=== PATIENT | male | born 1965 | race Caucasian/White ===

== ENCOUNTER 2020-01-19 06:58 | Observation (INO) ==
--- NOTE | 2020-01-02 09:05 | PAT Medication Instructions ---
Medication Instructions Date of Service January 02, 2020 Home Medications Medication Instructions Recorded Ace Nunn #1 ea 01/02/20 amlodipine 5 mg PO QAM atenolol 50 mg PO QAM benazepril 40 mg PO QAM hydrochlorothiazide 12.5 mg PO QAM meloxicam 15 mg PO QAM omega 6-pzv-fhw-fish oil [Fish Oil] 2 cap PO QAM ASK your surgeon for instructions meloxicam 15 mg PO QAM STOP taking 2 weeks before surgery If surgery is within 2 weeks, stop taking as soon as possible. omega 3-xqe-bqd-fish oil [Fish Oil] 2 cap PO QAM DO NOT take the morning of surgery benazepril 40 mg PO QAM hydrochlorothiazide 12.5 mg PO QAM Take morning of surgery With a small sip of water, OTHERWISE NOTHING TO EAT OR DRINK AFTER MIDNIGHT: amlodipine 5 mg PO QAM atenolol 50 mg PO QAM Other Notes If you have any questions please call us at [phone] or [phone] or [phone] or [phone]
--- NOTE | 2020-01-02 09:34 | Anesthesiology Consultation ---
Date of Service January 02, 2020 Assessment & Plan (1) Encounter for pre-operative examination: COVID Status: As of 01/01 assessment, patient denies travel to endemic area, known exposure/sick contacts, or symptoms of COVID19. Patient instructed to follow strict social distancing guidelines, wear a mask in public and avoid travel for 14 days prior to surgery. 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 Lately has been to [place], [place], [place], [place]. He does not know his schedule, but there is a chance he could drive through the [facility] currently on the list of "hot spots" ([place], [place], [place], etc). He was instructed to strictly follow safety guidelines when in those states. Preoperative COVID19 testing to be completed on 01/14. Patient made aware to self-isolate as much as possible between COVID testing and surgery. He states he will not be working between testing and surgery. Paratracheal abnormality seen on pre-op CXR. Note sent to PCP, awaiting respons e. Chart Review Chart Review: Acceptable Risk for Surgery (pending PCP response re: CXR) and Patient seen in Pre Admission Testing Teaching & Discussion Instructed NPO after midnight before surgery, except medications with 15 cc of water. Medication instructions provided according to the PAT guidelines. History Surgery Operation Date: 01/19/20 12:30 Proposed Procedures p Right Anterior Total Hip Arthroplasty - Hima Wen DO Height/Weight Height: 6 ft 1 in Weight: 134.1 kg Allergies Allergy/AdvReac Type Severity Reaction Status Date / Time No Known Allergies Allergy Verified 12/28/19 12:49 Medications Home Medications Medication Instructions Recorded Confirmed Last Taken amlodipine 5 mg PO QAM 12/28/19 01/02/20 Unknown atenolol 50 mg PO QAM 12/28/19 01/02/20 Unknown benazepril 40 mg PO QAM 12/28/19 01/02/20 Unknown hydrochlorothiazide 12.5 mg PO QAM 12/28/19 01/02/20 Unknown meloxicam 15 mg PO QAM 12/28/19 01/02/20 Unknown omega 7-fvb-adx-fish oil [Fish Oil] 2 cap PO QAM 12/28/19 01/02/20 Unknown Wheeled Walker #1 ea 01/02/20 01/02/20 Unknown Past Medical History Medical History Hypertension Obesity Osteoarthritis Sleep apnea cpap Exercise / Class Metabolic Activity II 4-5 Yardwork/Stairs/Walk up hill (Limited by knee pain/hip pain but denies SOB/CP with 1 FOS, moving slowly) Past Family History Family History Other No family history of adverse response to anesthesia Past Surgical History Surgical History No history of previous surgery Past Anesthesia History No Family Hx of Anesthesia Complications Patient has never had anesthesia. History of PONV No Hx of Motion Sickness Social History Smoking Status: Never smoker Do You Dip or Chew Tobacco: No Hx Alcohol Use: No Hx Substance Use: No substance use type: does not use Review of Systems Pt denies any recent chest pain, shortness of breath, palpitations, cough, fever or URI. Physical Exam Vital Signs BP: 130/76 P: 69bpm SPO2: 97% RA T: 98.6 F R: 12 ENMT Mouth: no dental restorations, no chipped teeth and no loose teeth Thyromental Distance: > or= 3.5 Finger Breadths (3.5) Mallampati Class: II Neck normal visual inspection; neck extension not limited Respiratory normal respiratory effort Auscultation: lungs clear to auscultation bilaterally Cardiovascular Rate/Rhythm: regular rate and regular rhythm Heart Sounds: no murmur Vessels: no carotid bruit Testing Laboratory Results 01/02/20 09:44 01/02/20 09:44 PT 11.1 Seconds (9.0-12.0) 01/02/20 09:44 INR 1.1 (0.9-1.1) 01/02/20 09:44 APTT 27.1 Seconds (21.0-31.0) 01/02/20 09:44 Blood Type A Positive 01/02/20 09:44 Antibody Screen NEGATIVE 01/02/20 09:44 Electrocardiogram Date: 01/02/20 Findings: + NSR @ (67bpm) Chest X-Ray Date: 01/02/20 FINDINGS: Cardiac silhouette is normal. Ill-defined opacity of the right paratracheal tissues. Mild descending thoracic aortic tortuosity. Small hiatal hernia. No pneumothorax, pleural effusion, overt pulmonary edema or airspace consolidation to suggest pneumonia. Bones appear grossly intact. IMPRESSION: 1. Ill-defined right paratracheal opacity may be projectional. Correlate with prior imaging. 2. Small hiatal hernia.
--- NOTE | 2020-01-02 10:08 | XRay Report ---
XR chest Pre-admission PA/Lat HISTORY: 54 years-old Male pat preoperative exam. No acute chest complaints. COMPARISON: 9 TECHNIQUE: PA and lateral views of the chest FINDINGS: Cardiac silhouette is normal. Ill-defined opacity of the right paratracheal tissues. Mild descending thoracic aortic tortuosity. Small hiatal hernia. No pneumothorax, pleural effusion, overt pulmonary e katie or airspace consolidation to suggest pneumonia. Bones appear grossly intact. IMPRESSION: 1. Ill-defined right paratracheal opacity may be projectional. Correlate with prior imaging. 2. Small hiatal hernia. ACT 112: Negative or not required by law. The above report was generated using voice recognition software. It may contain grammatical, syntax o r spelling errors. Electronically signed by: Gary Pappas M.D. 01/02/2020 10:06 AM
[2020-01-02 11:08] LABS: Basophils # (auto) 0.03 K/uL (0-0.2); Basophils % (auto) 0.6 %; Hematocrit (blood only) 41.4 % (42-52); Hemoglobin 14.1 g/dL (14.0-18.0); Immature Granulocytes # (auto) 0.02 K/uL (0.00-0.02); Immature Granulocytes % (auto) 0.4 %; Lymphocytes # (auto) 1.26 K/uL (1.2-3.4); Lymphocytes % (auto) 25.1 %; Mean Corpuscular Hemoglobin 31.3 pg (25-34); Mean Corpuscular Hgb Conc 34.1 g/dL (32-36); Mean Corpuscular Volume 91.8 fL (80-100); Mean Platelet Volume 9.8 fL (7.4-10.4); Monocytes # (auto) 0.49 K/uL (0.11-0.59); Monocytes % (auto) 9.8 %; Neutrophils # (auto) 3.12 K/uL (1.4-6.5); Neutrophils % (auto) 62.1 %; Platelet Count 239 K/uL (130-400); RDW Coefficient of Variation 12.5 % (11.5-14.5); Red Blood Count 4.51 M/uL (4.7-6.1); White Blood Count 5.02 K/uL (4.8-10.8)
[2020-01-02 11:14] LABS: INR 1.1 (0.9-1.1); Partial Thromboplastin Time 27.1 Seconds (21.0-31.0); Prothrombin Time 11.1 Seconds (9.0-12.0)
[2020-01-02 11:18] LABS: BUN Creatinine Ratio 16.9 (10-20); Calcium 9.3 mg/dl (8.5-10.1); Creatinine Clr Calc Pharmacy 94.8 ml/min; Est GFR (African American) 74.1; Potassium 4.4 mmol/L (3.5-5.1)
--- NOTE | 2020-01-03 06:41 | Electrocardiogram Report ---
Test Reason : Blood Pressure : / mmHG Vent. Rate : 067 BPM Atrial Rate : 067 BPM P-R Int : 184 ms QRS Dur : 104 ms QT Int : 406 ms P-R-T Axes : 060 066 061 degrees QTc Int : 429 ms Normal sinus rhythm Normal ECG No previous ECGs available Confirmed by Herb Newsome ([id number]) on 01/03/2020 6:41:25 AM Referred By: Hima Wen Confirmed By:Herb Newsome
--- NOTE | 2020-01-18 08:15 | History & Physical Report ---
Date of Service January 18, 2020 Assessment & Plan (1) Osteoarthritis of right hip: We will proceed with a right anterior total hip arthroplasty. Postoperatively he will be placed on aspirin for DVT prophylaxis and kept overnight in the hospital for postoperative medical management. He plans to use energy physical therapy upon discharge. Lazaro is a low risk for joint placement surgery without any major comorbidities. Present on Admission?: Yes History of Present Illness Chief Complaint: Primary osteoarthritis of the right hip Primary Care Provider: Donna Vee MD Lazaro is a pleasant 54-year-old male who presented my office with complaints of chronic increasing right hip and groin pain. X-rays and clinical examination have been diagnostic for advanced osteoarthritis of the right hip. After failing extensive conservative treatment, he has elected proceed with a right total hip arthroplasty. Allergies Allergy/AdvReac Type Severity Reaction Status Date / Time No Known Allergies Allergy Verified 12/28/19 12:49 Home Medications Home Medications Medication Instructions Recorded Confirmed Type amlodipine 5 mg PO QAM 12/28/19 01/02/20 History atenolol 50 mg PO QAM 12/28/19 01/02/20 History benazepril 40 mg PO QAM 12/28/19 01/02/20 History hydrochlorothiazide 12.5 mg PO QAM 12/28/19 01/02/20 History meloxicam 15 mg PO QAM 12/28/19 01/02/20 History omega 1-stz-zok-fish oil [Fish Oil] 2 cap PO QAM 12/28/19 01/02/20 History Wheeled Walker #1 ea 01/02/20 01/02/20 Rx Past Med/Surg History Medical History Hypertension Obesity Osteoarthritis Sleep apnea cpap Surgical History No history of previous surgery Family History Other No family history of adverse response to anesthesia Social History Smoking Status: Never smoker Second Hand Exposure: No; Hx Alcohol Use: No Hx Substance Use: No Preferred Language: Icelandic Communication Ability: Effective 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 Beliefs That Will Affect Care: None Current Living Situation: Spouse Current Living Situation Comment: adult son every other weekend Feels Safe at Home: Yes Review of Systems Review of Systems: All systems reviewed & are unremarkable except as noted in HPI & below Physical Exam Constitutional: WD/WN, vitals as above Eyes: PERRL, conjunctivae normal, anicteric sclerae ENMT: external ear and nose normal, oropharynx normal Neck: trachea midline, no thyromegaly Respiratory: normal respiratory effort Cardiovascular: RRR, no murmur, no edema Gastrointestinal (Abdomen): normal bowel sounds, soft, nontender, no hepatosplenomegaly Musculoskeletal: Physical examination of the right hip reveals decreased range of motion with flexion, internal and external rotation. There is significant groin pain with forced internal rotation of the hip his leg lengths are essentially equal. Psychiatric: A+Ox3, euthymic affect Results & Data Results & Data ([facility]) Diagnostic Findings Radiographs of the right hip and pelvis demonstrate advanced osteoarthritis with joint space narrowing osteophyte formation and bwwh-lh-fuzn articulation. PG Care Time/CCT Total # of Minutes Spent Total Time Spent with Patient: Total time spent is greater than 50% in coordination of care (as documented) at patient's floor/unit and/or counseling patient: Coding Level of Care Code 70647 Initial Inpt Care Lvl 3 Diagnoses Osteoarthritis of right hip M16.11
--- NOTE | 2020-01-19 06:53 | History & Physical Bridge Note ---
Date of Service January 19, 2020 History & Physical Bridge Note I have examined the patient, reviewed the History & Physical and in the interval since the performance of the History & Physical I have noted the following changes of clinical significance: no changes noted
[~2020-01-19 06:58] MED LIST: ACETAMINOPHEN 500 MG TAB PO SCH; BUPIVACAINE 0.5 % 5 MG/1 ML PF 10ML VIAL ONE; CEFAZOLIN 3000MG 72.5 ML IV SCH; DEXAMETHASONE SOD INJ 4 MG/ML VIAL ONE; FAMOTIDINE 20 MG TAB PO SCH; GABAPENTIN 600 MG DOSE PO SCH; GLYCOPYRROLATE 0.2 MG/ML VIAL ONE; KETAMINE HCL INJ 50 MG/ML 10 ML VIAL ONE; LIDOCAINE HCL 2% 2 ML VIAL/AMP(20MG/ML) INFIL ONE; LR 500ML BOLUS, THEN 15ML/HR IV SCH; LR 60ML/HR IV SCH; MIDAZOLAM HCL 1 MG/ML 2ML VIAL ONE; ONDANSETRON INJ 2 MG/ML 2 ML VIAL ONE; PROPOFOL IV EMULSION 10 MG/ML 20 ML VIAL IV ONE; ROPIVACAINE 0.5% HCL/PF 150 MG, BUPIVACAINE 0.5% MPF 30 ML, EPINEPHrine 30MG/30ML (OR U... INSTIL SCH; TRANEXAMIC ACID 1,000 MG **IV Intra-op IV SCH; TRANEXAMIC ACID 1,000 MG **IV Pre-op IV SCH; dexAMETHasone 4 MG TAB PO SCH
[2020-01-19] MEDS ORDERED: ORTHO JOINT ANESTHETIC ONE (07:47)
[2020-01-19] MEDS ORDERED: fentaNYL citrate 100 MCG/2 ML VIAL IV PRN (08:11)
[2020-01-19] MEDS ORDERED: ATROPINE SULFATE 0.1 MG/ML 10ML SYR IV PRN (08:11)
[2020-01-19] MEDS ORDERED: ONDANSETRON INJ 2 MG/ML 2 ML VIAL IV PRN ×2 (08:11→12:03)
[2020-01-19] MEDS ORDERED: HYDROmorphone INJ 2 MG/ML SYR/VIAL IV PRN (08:11)
[2020-01-19] MEDS ORDERED: ePHEDrine sulfate 50 MG/ML AMP IV PRN (08:11)
[2020-01-19] MEDS ORDERED: PROPOFOL IV EMULSION 10 MG/ML 20 ML VIAL IV ONE ×2 (09:52)
--- NOTE | 2020-01-19 10:08 | Operative Report ---
PG Post Operative Report Pre & Post Diagnosis Operation Date: 01/19/20 08:40 Pre-Op Diagnosis: Right Hip Degenerative Joint Disease Post-Op Diagnosis: Right Hip Degenerative Joint Disease I identified the patient and participated in the time-out.: Yes Procedure Operation Date: 01/19/20 08:40 Actual Procedures p Right Anterior Total Hip Arthroplasty, Uncemented(Right) - Hima Wen DO Surgeon Hima Wen, Procedures Analyst Hima Jaramillo PAC Estimated Blood Loss 300 Findings Consistent with Post-Op Diagnosis Specimens Right femoral head Complications none Disposition Disposition: Recovery Room Indications Lazaro is a pleasant 54-year-old male who presented my office with chronic increasing right hip and groin pain. X-rays and clinical examination are diagnostic for advanced osteoarthritis of the right hip. After failing conservative treatment, he elected proceed with a right anterior total hip arthroplasty. Description of Procedure Implants used I used a Biomet Taperloc total hip arthroplasty system with a size 16 high offset micro Taperloc stem, a 60 mm G7 cup with a 25mm screw, an E1 polyethylene liner, a 40 mm ceramic head with a +3 neck. Lazaro arrived at the hospital for the above procedure. He was seen in the preoperative holding area and the operative extremity was identified and signed. He was given a spinal anesthetic, a preoperative antibiotic, and TXA. He was then taken back to the operating room and laid on the table in the supine position. He was given basic sedation. The operative leg was secured to a Puristst leg positioner. The hip was then prepped and draped in sterile fashion. A timeout was done and the patient and the operative extremity was properly identified. An anterior approach was used. Dissection was taken down through the fascia and the tensor muscle belly was retracted laterally and the rectus was retracted medially. The circumflex vessels were identified and ligated. The capsule was then incised and tagged for later repair. The femoral neck was then cut and the femoral head was removed. The acetabulum was exposed. Time was spent doing a complete circumferential labral release. Sequential reaming of the acetabulum up to a size 59 reamer was done. Final reamings were done under fluoroscopy to ensure appropriate version. A Biomet 60 mm G7 cup was then impacted into place. A single 25 mm screw was placed. The E1 polyethylene liner was then snapped into place. Surrounding soft tissues were then injected with 100 cc of an orthopedic pain control cocktail. The proximal femur was then exposed. Sequential broaching up to a size 16 broach was done. Off that broach a size 40 head with a +3 neck was trialed. The hip was reduced and fluoroscopic images showed anatomic alignment of the implants in acceptable length. The broach was removed. The final size 16 high offset micro Taperloc stem was then impacted into place. A ceramic 40 mm head with a +3 neck was then impacted onto the stem and the hip was reduced. Final fluoroscopic images showed anatomic alignment of the hip. The capsule was then closed with #1 Vicryl suture. A dilute betadyne lavage was then done for 3 minutes. The joint was then irrigated with normal saline solution. The fascia was closed with #1 PDS suture. Skin was closed with 2-0 Vicryl, dax, and a Monica VAC dressing. He was then transferred to a hospital bed and taken to the post anesthesia care unit in stable condition. He tolerated the procedure well. Hima Jaramillo PA-C, was present for the entire procedure. He was critical for patient positioning, prepping, draping, retraction exposure, wound closure and application of sterile dressing. I attest to the content of the Intraoperative Record and any orders documented therein. Any exceptions are noted below.
--- NOTE | 2020-01-19 10:37 | Fluoroscopy Report ---
FL hip RT 1V HISTORY: 54 years-old Male RT ANTERIOR HIP right hip total joint arthroplasty COMPARISON: Right hip radiographs 08/04/2019 TECHNIQUE: 2 spot fluoroscopic images of the right hip were obtained utilizing 24.0 seconds fluorosco py time FINDINGS: Right hip total joint arthroplasty demonstrates satisfactory alignment. No acute fracture or retained foreign body identified. Expected postoperative soft tissue swelling with deep tissue air. IMPRESSION: Fluoroscopic assistance as above. Please see operative report for further details. ACT 112: Negative or not required by law. The above report was generated using voice recognition software. It may contain grammatical, syntax o r spelling errors. Electronically signed by: Gary Pappas M.D. 01/19/2020 10:36 AM
--- NOTE | 2020-01-19 10:58 | XRay Report ---
AP PELVIS, CROSSTABLE LATERAL RIGHT HIP History: Right total hip arthroplasty. Degenerative arthritis. Postop. FINDINGS: The patient is status post a right total hip arthroplasty. The hardware is intact. No fract ure or dislocation. Moderate left hip osteoarthritis. IMPRESSION: Right total hip arthroplasty. No evidence for hardware complication ACT 112: Negative or not required by law. Electronically signed by: Ephraim Thorne M.D. 01/19/2020 10:57 AM
--- NOTE | 2020-01-19 11:13 | Anesthesiology Progress Note ---
Date of Service January 19, 2020 Anesthesia Post Procedure Vital Signs Vital Signs: Temp Pulse Pulse Resp BP BP Pulse Ox 01/19/20 11:00 64 18 103/64 96 01/19/20 10:50 67 15 100/64 100 01/19/20 10:40 68 16 94/58 L 99 01/19/20 10:32 36.4 C L 70 22 88/56 L 100 01/19/20 08:13 37 C 70 20 140/79 98 01/19/20 07:24 36.8 C 75 22 147/91 H 98 Pain Intensity Generalized: Pain Intensity: 5 Transfer of Care Handoff Completed per policy Notes Mental Status: alert / awake / arousable and participated in evaluation Patient Amnestic to Procedure: Yes Nausea / Vomiting: adequately controlled Pain: adequately controlled Airway Patency, RR, SpO2: stable & adequate BP & HR: stable & adequate Hydration State: stable & adequate Neuraxial Anesthesia: was administered and sensory block is resolving Anesthetic Complications: no major complications apparent and Pt Satisfied with anesthetic care
[2020-01-19] MEDS ORDERED: METOCLOPRAMIDE HCL INJ 5 MG/ML 2 ML VIAL IV PRN (12:03)
[2020-01-19] MEDS ORDERED: NALOXONE HCL 0.4 MG/1 ML VIAL/CARP IV PRN (12:03)
[2020-01-19] MEDS ORDERED: MAGNESIUM HYDROXIDE SUSP 30 ML UDC PO PRN (12:03)
[2020-01-19] MEDS ORDERED: OXYCODONE HCL IR 5 MG TAB (IMMEDIATE RELEASE) PO PRN (12:03)
[2020-01-19] MEDS ORDERED: bisacodyL 10 MG SUPP PR PRN (12:03)
[2020-01-19] MEDS ORDERED: SODIUM CHLORIDE 0.9% 1000ML 1,000 ML IV SCH (12:03)
[2020-01-19] MEDS ORDERED: HYDROmorphone INJ 0.5 MG/0.5 ML SYR IV PRN (12:03)
[2020-01-19] MEDS: ACETAMINOPHEN 500 MG TAB PO SCH ×2 (13:59→21:42)
[2020-01-19] MEDS: KETOROLAC 30 MG/ML VIAL IV SCH ×3 (13:59→23:28)
[2020-01-19] MEDS: CEFAZOLIN 2000MG 2,000 MG/15 ML SYR IV SCH ×2 (16:14→23:28)
[2020-01-19] MEDS ORDERED: SENNA 8.6 MG TAB PO SCH (21:00)
[2020-01-19] MEDS: DOCUSATE SODIUM 100 MG CAP PO SCH (21:43)
[2020-01-19] MEDS: ASPIRIN 81 MG ECTAB PO SCH (21:43)
[2020-01-20] MEDS: ACETAMINOPHEN 500 MG TAB PO SCH (05:12)
[2020-01-20] MEDS: KETOROLAC 30 MG/ML VIAL IV SCH (05:13)
[2020-01-20 05:56] LABS: Basophils # (auto) 0.01 K/uL (0-0.2); Basophils % (auto) 0.1 %; Hematocrit (blood only) 33.1 % (42-52); Hemoglobin 11.7 g/dL (14.0-18.0); Immature Granulocytes # (auto) 0.03 K/uL (0.00-0.02); Immature Granulocytes % (auto) 0.2 %; Lymphocytes # (auto) 1.01 K/uL (1.2-3.4); Lymphocytes % (auto) 7.6 %; Mean Corpuscular Hemoglobin 31.9 pg (25-34); Mean Corpuscular Hgb Conc 35.3 g/dL (32-36); Mean Corpuscular Volume 90.2 fL (80-100); Mean Platelet Volume 9.6 fL (7.4-10.4); Monocytes # (auto) 0.83 K/uL (0.11-0.59); Monocytes % (auto) 6.3 %; Neutrophils # (auto) 11.34 K/uL (1.4-6.5); Neutrophils % (auto) 85.8 %; Platelet Count 183 K/uL (130-400); RDW Coefficient of Variation 12.3 % (11.5-14.5); RDW Standard Deviation 40.9 fL (36.4-46.3); Red Blood Count 3.67 M/uL (4.7-6.1); White Blood Count 13.22 K/uL (4.8-10.8)
[2020-01-20 06:31] LABS: BUN Creatinine Ratio 23.7 (10-20); Calcium 8.5 mg/dl (8.5-10.1); Creatinine Clr Calc Pharmacy 88.4 ml/min; Est GFR (African American) 68.2; Est GFR (Non-African American) 58.8; Potassium 4.6 mmol/L (3.5-5.1)
--- NOTE | 2020-01-20 07:40 | Orthopedic Progress Note ---
Date of Service January 20, 2020 Assessment & Plan (1) Status post right hip replacement: Overall he is doing very well. Is not having much pain in the right hip. He will be seen by physical therapy this morning for ambulation and range of motion exercises. He is on aspirin for DVT prophylaxis. He can be discharged home later today. He will follow-up with orthopedics in 2 weeks. Present on Admission?: Yes Subjective Lazaro was seen and examined at bedside this morning. Overall he is doing very well. Is not having much pain in the right hip. He has already been up and ambulating around the nurses station. He has no complaints. Physical Exam Musculoskeletal: On physical examination of the right hip, the Summer sarkar sing is clean and dry. His leg lengths are equal. He has active dorsiflexion and plantarflexion of the right ankle. Results & Data ([facility]) Vital Signs (Past 12 Hours) Vital Signs Temp Pulse Resp BP Pulse Ox 01/20/20 04:00 36.8 C 68 20 136/69 94 01/19/20 23:16 36.8 C 76 14 130/71 98 01/19/20 20:14 36.5 C 61 15 105/65 94 Laboratory Results H & H 01/02/20 01/20/20 Range/Units 09:44 05:04 Hgb 14.1 11.7 L (14.0-18.0) g/dL Hct 41.4 L 33.1 L (42-52) % Coagulation 01/02/20 Range/Units 09:44 INR 1.1 (0.9-1.1) Diagnostic Findings Postoperative x-rays of the right hip show the prosthesis to be in anatomic alignment without any evidence of fracture, dislocation, or loosening. PG Care Time/CCT Total # of Minutes Spent Total Time Spent with Patient: Total time spent is greater than 50% in c oordination of care (as documented) at patient's floor/unit and/or counseling patient: Coding Level of Care Code None Diagnoses Status post right hip replacement Z96.641
--- NOTE | 2020-01-20 07:42 | Discharge Summary ---
Date of Service January 20, 2020 Admission HPI Per Admitting Provider Lazaro is a pleasant 54-year-old male who presented my office with complaints of chronic increasing right hip and groin pain. X-rays and clinical examination have been diagnostic for advanced osteoarthritis of the right hip. After failing extensive conservative treatment, he has elected proceed with a right total hip arthroplasty. Principal Diagnosis Right hip replacement Discharge Data Allergies Allergy/AdvReac Type Severity Reaction Status Date / Time No Known Allergies Allergy Verified 01/19/20 07:46 Consultations 01/20/20 08:00 Consult Case Management - Discharge Planning Routine Procedures Performed Operation Date: 01/19/20 08:40 Actual Procedures p Right Anterior Total Hip Arthroplasty, Uncemented(Right) - Hima Wen DO Ordered Studies 01/19/20 08:40 FL fluoroscopy <1hr Routine FL hip RT 1V Routine Hospital Course (1) Status post right hip replacement: On January 19, 2020 Lazaro arrived at [facility] and underwent a right anterior total hip arthroplasty without complication. He had a spinal anesthetic. Postoperatively he was started on aspirin for DVT prophylaxis and transferred to the general orthopedic floors. His hospital course was un eventful. On postop day #1 his H&H was stable and his pain was well controlled. He was able to participate well with physical therapy doing ambulation and range of motion exercises. He was then discharged home. He will follow-up with orthopedics in 2 weeks. Total Time Total Time Spent Total Time Spent (In Minutes): 20 Discharge Plan Discharge Items Patient Disposition: Home - Home Health Services Reason For Visit: RIGHT HIP DEGENERATIVE JOINT DISEASE Discharge Diagnosis: Right hip replacement Activity: As commented below Non-emergency contact: Surgeon Call non-emergency contact if: your wound has increased redness and your wound has increased drainage Follow-up/Referrals: Donna Vee MD [Primary Care Provider] - Diet: Regular Addtl Attending Provider Instructions: Activity and Therapy Recommendations: * If you are using [facility] then therapy will be provided at your home until they feel you have accomplished all of your goals. * If you are using [facility] then Physical Therapy will be provided until they feel you are ready to start Outpatient Physical Therapy. * If you are not using home therapy then Outpatient Physical Therapy should start about 3-5 days from your day of surgery. Therapy will last about 6-10 weeks * You were shown a series of exercises in the hospital. Do these exercises three times each day including the exercises you were shown in physical therapy. * Get up and walk several times each day.~ For the first four weeks, try not to stand or walk for more than one hour at a time. If you do stand or walk for more than one hour, you will not hurt anything, but your leg will likely swell.~~ * As you feel comfortable, you may change from the walker or crutches to a cane and~then to independent walking. Medications: * Narcotic You will likely be sent home from the hospital with a prescription for the narcotic pain medication that worked best throughout your stay. * Aspirin Most patients will be required to take Aspirin 81mg twice a day for 6 weeks after surgery. This is obtained [id number] and a prescription is not necessary. * Other medications may be prescribed for specific circumstances. If you have any questions, please call the office at . * Resume previous home medications unless otherwise instructed TEDs/Elastic Stockings: The white elastic stockings help limit swelling and prevent blood clots from forming in your legs. The more you wear them, the more they work. Wear them for six weeks. Dressing Care: Leave the Silverlon dressing in place for 7 days. After 7 days you may remove the dressing. If the incision is not draining then you may leave the dax open to air. If there is a little bit of drainage or if the dax are getting stuck on your clothing then cover the incision with a dry dressing. The dax will be removed at your 2 week follow-up appointment. Showering: You may shower with the Silverlon dressing in place. Let the shower spray hit the other shoulder. You can pat the dressing dry. If the dressing becomes wet underneath the plastic then simply remove the dressing. Keep the incision dry until you are 7 days out from the day of surgery. At that time you can shower with the dax exposed. Let the soapy shower water run over the dax and pat them dry. Do not scrub or soak the incision. Things To Watch For: * Drainage from the incision site that occurs more than one week after your surgery. * Increased redness at the incision site. * Fever above 102 degrees Fahrenheit. * Unusual chest pain or shortness of breath. * Call [facility] at with any of the above problems Follow-Up Visit: Follow-up with Dr. Wen's PA (Hima Jaramillo) 2-3 weeks after your day of surgery. He will remove your dax and answer any questions. If you have any additional questions or concerns, Dr Wen is usually in the office at the same time and will be available An appointment was probably scheduled when you signed-up for surgery in the office. If you have any questions call Office Instructions: More detailed instructions as well as Frequently Asked Questions were provided in a folder by our office when you signed-up for surgery. Please review these instructions when you get home. If you have any further questions or concerns, please feel free to call the office at [phone] Pending Studies at Discharge: No Stand-Alone Forms: My [facility] [employer], Smoking Cessation Medications and DC Order Prescriptions: New oxycodone 5 mg Tablet 5 mg PO Q4H PRN (Reason: pain) Qty: 30 RF: 0 aspirin 81 mg Tablet,Delayed Release (Dr/Ec) 81 mg PO BID 42 Days Qty: 0 RF: 0 Continued (DME) Wheeled Walker Misc See Rx Instructions .ROUTE .MEDSUPPLY Qty: 1 RF: 0 meloxicam 15 mg Tablet 15 mg PO QAM RF: 0 amlodipine 5 mg Tablet 5 mg PO QAM RF: 0 hydrochlorothiazide 25 mg Tablet 12.5 mg PO QAM RF: 0 benazepril 40 mg Tablet 40 mg PO QAM RF: 0 atenolol 50 mg Tablet 50 mg PO QAM RF: 0 omega 9-xvq-eqf-fish oil [Fish Oil] 1,000 mg (120 mg-180 mg) Capsule 2 cap PO QAM RF: 0 Discharge Orders: Discharge Order (Routine); Ordered 01/20/20 Ordered By: Hima Wen Admission Data Admit Date/Time: 01/19/20 10:34 Attending Provider: Hima Wen Admit Provider: Hima Wen Primary Care Provider: Donna Vee Coding Level of Care Code D/C Day Management <30 mins Diagnoses Status post right hip replacement Z96.641
[2020-01-20] MEDS: ASPIRIN 81 MG ECTAB PO SCH (07:55)
[2020-01-20] MEDS: DOCUSATE SODIUM 100 MG CAP PO SCH (07:55)
[2020-01-20] MEDS ORDERED: dexAMETHasone 4 MG TAB PO SCH (08:00)
[2020-01-20] MEDS ORDERED: AMLODIPINE BESYLATE 5 MG TAB PO SCH (09:00)
[2020-01-20] MEDS ORDERED: ENALAPRIL MALEATE 10 MG TAB PO SCH (09:00)
[2020-01-20] MEDS ORDERED: ATENOLOL 50 MG TABLET PO SCH (09:00)
[2020-01-20] MEDS ORDERED: hydroCHLOROthiazide 25 MG TAB PO SCH (09:00)
[2020-01-20] MEDS ORDERED: MULTIVITAMIN TAB PO SCH (09:00)
== END 2020-01-20 11:53 | disposition home health service (06) ==
LOC: 3E 06:58 → ASU 06:58

== ENCOUNTER 2021-09-15 05:13 | Observation (INO) ==
--- NOTE | 2021-08-21 10:32 | PAT Medication Instructions ---
Medication Instructions Date of Service August 21, 2021 Home Medications Medication Instructions Recorded Ace Nunn #1 ea 01/02/20 amlodipine 5 mg tablet 5 mg PO QAM atenolol 50 mg tablet 50 mg PO QAM benazepril 40 mg tablet 40 mg PO QAM hydrochlorothiazide 25 mg tablet 12.5 mg PO QAM meloxicam 15 mg tablet 15 mg PO QAM omega 7-cee-zag-fish oil 1,000 mg (120 mg-180 mg) capsule (Fish Oil) 2 cap PO QAM ASK your surgeon for instructions meloxicam 15 mg tablet 15 mg PO QAM STOP taking 2 weeks before surgery omega 8-rfn-dzq-fish oil 1,000 mg (120 mg-180 mg) capsule (Fish Oil) 2 cap PO QAM DO NOT take the morning of surgery benazepril 40 mg tablet 40 mg PO QAM hydrochlorothiazide 25 mg tablet 12.5 mg PO QAM Take morning of surgery With a small sip of water, OTHERWISE NOTHING TO EAT OR DRINK AFTER MIDNIGHT: amlodipine 5 mg tablet 5 mg PO QAM atenolol 50 mg tablet 50 mg PO QAM Other Notes If you have any questions please call us at [phone] or [phone] or [phone] or [phone]
--- NOTE | 2021-08-25 10:15 | Anesthesiology Consultation ---
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 No known Covid positive exposures or Covid related symptoms. No known Covid infection in the past 90 days. Pt is NOT vaccinated for Covid. Preop Covid testing scheduled 09/11/21= will await results. (Pt drives truck- unsure if he will be home by 09/11/21- did educated that latest he could get Covid test would be Wednesday09/12/21 BEFORE 11am at [facility]). Pt voices understanding. Educated on importance of self quarantining, social distancing and wearing mask in public for the patient one week prior to surgery and after Covid testing done Right anterior AJIT 01/19/20= Done under SAB at L3-4. Teaching & Discussion Pre-Anesthesia Teaching/Discussion Notes: Instructed NPO after midnight before surgery,except medications with 15 cc of water. Medication instructions provided according to the PAT guidelines. History Surgery Operation Date: 09/15/21 10:40 Proposed Procedures p Bilateral Total Knee Arthroplasty - Hima Wen, DO Height/Weight Height: 6 ft 2 in Weight: 142.1 kg Allergies Allergy/AdvReac Type Severity Reaction Status Date / Time No Known Allergies Allergy Verified 08/05/21 11:22 Medications Home Medications Medication Instructions Recorded Confirmed Last Taken amlodipine 5 mg tablet 5 mg PO QAM 12/28/19 08/05/21 01/19/20 05:30 atenolol 50 mg tablet 50 mg PO QAM 12/28/19 08/05/21 01/19/20 05:30 benazepril 40 mg tablet 40 mg PO QAM 12/28/19 08/05/21 01/18/20 08:00 hydrochlorothiazide 25 mg tablet 12.5 mg PO QAM 12/28/19 08/05/21 01/18/20 08:00 meloxicam 15 mg tablet 15 mg PO QAM 12/28/19 08/05/21 01/11/20 08:00 omega 5-rwy-hzy-fish oil 1,000 mg 2 cap PO QAM 12/28/19 08/05/21 01/05/20 08:00 (120 mg-180 mg) capsule (Fish Oil) Wheeled Walker #1 ea 01/02/20 02/06/20 Unknown Past Medical History Medical History Hypertension Obesity Osteoarthritis Sleep apnea cpap Exercise / Class Metabolic Activity II 4-5 Yardwork/Stairs/Walk up hill (one flight of stairs -no chest pain or SOB ) Past Family History Family History Other No family history of adverse response to anesthesia No known health problems Past Surgical History Surgical History Status post right hip replacement (~12/2019) Past Anesthesia History No Hx of Anesthesia Complications and No Family Hx of Anesthesia Complications History of PONV No Hx of PONV and No Hx of Motion Sickness Social History Smoking Status: Never smoker Do You Dip or Chew Tobacco: No Hx Alcohol Use: No Hx Substance Use: No substance use type: does not use Review of Systems Patient denies chest pain, shortness of breath, dyspnea on exertion, reflux, cough, wheezing, palpitations. No hx of seizures, stroke, NE. No hx of blood clots or blood transfusions Physical Exam Vital Signs VITALS BP 148/92 P 71 TEMP 98.2 SP02 97% RESP 16 Constitutional no acute distress ENMT Mouth: + small oral opening; no TMJ clicking Thyromental Distance: > or= 3.5 Finger Breadths (3.5) Mallampati Class: III Neck neck extension not limited Respiratory normal respiratory effort; no respiratory distress Auscultation: lungs clear to auscultation bilaterally; no wheezes Cardiovascular Rate/Rhythm: regular rate and regular rhythm Heart Sounds: no murmur Vessels: no carotid bruit Musculoskeletal Spine: no pain with cervical ROM Extremities: extremities normal to inspection Psychiatric Orientation: alert Lab Results Anesthesia Preop Results Results Anesthesia Widget: WBC 6.70 K/uL (4.8-10.8) 08/25/21 Hgb 13.7 g/dL (14.0-18.0) L 08/25/21 Hct 40.7 % (42-52) L 08/25/21 Plt 245 K/uL (130-400) 08/25/21 Na 137 mmol/L (136-145) 08/25/21 K 4.5 mmol/L (3.5-5.1) 08/25/21 Cl 104 mmol/L (98-107) 08/25/21 CO2 26 mmol/L (21-32) 08/25/21 BUN 22 mg/dl (6-23) 08/25/21 Creat 1.40 mg/dl (0.6-1.4) 08/25/21 Glucose Level 115 mg/dl (70-99(Fasting)) H 08/25/21 PT 10.3 Seconds (9.0-12.0) 08/25/21 PTT 26.2 Seconds (21.0-31.0) 08/25/21 INR 1.0 (0.9-1.1) 08/25/21 Blood Type A Positive 08/25/21 Antibody Screen NEGATIVE 08/25/21 Testing Electrocardiogram Date: 08/25/21 Findings: + NSR @ (66bpm) Normal EKG per cardio. Chest X-Ray Date: 08/25/21 Findings: + NAD No pneumothorax or no pleural effusions. The cardiac silhouette remains top normal in size. There is a moderate hiatus hernia, unchanged. No focal lung consolidations to suggest pneumonia. No evidence for pulmonary edema. A 6 mm nodular density within the left lateral lung base favors a calcified granuloma given the density. Mild anterior wedging within the lower thoracic spine vertebral bodies which remains unchanged and is likely chronic.
--- NOTE | 2021-09-11 08:58 | History & Physical Report ---
Date of Service September 11, 2021 Assessment & Plan (1) Osteoarthritis of knees, bilateral: We will proceed with bilateral total knee arthroplasties. Postoperatively he will be placed on aspirin for DVT prophylaxis and kept overnight in the hospital for postoperative medical management. He plans [facility] discharge. History of Present Illness Chief Complaint: Osteoarthritis bilateral knees. Primary Care Provider: oDnna Vee MD Lazaro is a pleasant 55-year-old male who is been doing chronic worsening bilateral knee pain. 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 X-rays and clinical examination been diagnostic for advanced osteoarthritis of both knees. After failing conservative treatment, he is elected proceed with bilateral total knee arthroplasties. Allergies Allergy/AdvReac Type Severity Reaction Status Date / Time No Known Allergies Allergy Verified 08/05/21 11:22 Home Medications Medication Instructions Recorded Confirmed Type amlodipine 5 mg tablet 5 mg PO QAM 12/28/19 08/05/21 History atenolol 50 mg tablet 50 mg PO QAM 12/28/19 08/05/21 History benazepril 40 mg tablet 40 mg PO QAM 12/28/19 08/05/21 History hydrochlorothiazide 25 mg tablet 12.5 mg PO QAM 12/28/19 08/05/21 History meloxicam 15 mg tablet 15 mg PO QAM 12/28/19 08/05/21 History omega 1-hgi-uim-fish oil 1,000 mg 2 cap PO QAM 12/28/19 08/05/21 History (120 mg-180 mg) capsule (Fish Oil) Wheeled Walker #1 ea 01/02/20 02/06/20 Rx Past Med/Surg History Medical History Hypertension Obesity Osteoarthritis Sleep apnea cpap Surgical History Status post right hip replacement (~12/2019) Family History Other No family history of adverse response to anesthesia No known health problems Social History Smoking Status: Never smoker Second Hand Exposure: Yes (ON OCC); Hx Alcohol Use: No Hx Substance Use: No Preferred Language: Occitan Communication Ability: Effective Senior Operations Manager Required: No Beliefs That Will Affect Care: None marital status: Current Living Situation: Spouse and Family Current Living Situation Comment: adult son every other weekend current occupational status: employed 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 Physical Exam On physical examination of both knees, he has motion from 5 to 115 degrees. Is no instability. He has pain of the distal medial femoral condyle and over the medial joint line. He does have a varus deformity. Constitutional WD/WN, vitals as above Eyes PERRL, conjunctivae normal, anicteric sclerae ENMT external ear and nose normal, oropharynx normal Neck trachea midline, no thyromegaly Respiratory normal respiratory effort Cardiovascular RRR, no murmur, no edema Gastrointestinal (Abdomen) normal bowel sounds, soft, nontender, no hepatosplenomegaly Psychiatric A+Ox3, euthymic affect Results & Data Results & Data Laboratory Results . Diagnostic Findings X-rays of both knees shows advanced osteoarthritis with joint space narrowing, osteophyte formation, and vvpu-mu-paio articulation. PG Care Time/CCT Total # of Minutes Spent Total Time Spent with Patient: Total time spent is greater than 50% in coordination of care (as documented) at patient's floor/unit and/or counseling patient: Coding Level of Care Code None Diagnoses Osteoarthritis of knees, bilateral M17.0
[2021-09-15] MEDS ORDERED: FAMOTIDINE 20 MG TAB PO SCH (06:00)
[2021-09-15] MEDS ORDERED: TRANEXAMIC ACID 1,000 MG **IV Intra-op IV SCH (06:00)
[2021-09-15] MEDS ORDERED: ACETAMINOPHEN 500 MG TAB PO SCH (06:00)
[2021-09-15] MEDS ORDERED: dexAMETHasone 4 MG TAB PO SCH (06:00)
[2021-09-15] MEDS ORDERED: TRANEXAMIC ACID 1,000 MG **IV Pre-op IV SCH (06:00)
[2021-09-15] MEDS ORDERED: LR 60ML/HR IV SCH (06:00)
[2021-09-15] MEDS ORDERED: Ketorolac (*for OR use only*) 30 MG, dexAMETHasone 4 MG, KETAMINE HCL (**OR use only) 1... INFIL SCH (06:00)
[2021-09-15] MEDS ORDERED: GABAPENTIN 300 MG CAP PO SCH (06:00)
[2021-09-15] MEDS ORDERED: ROPIVACAINE 0.5% 5 MG/ML 30 ML VIAL ONE (06:16)
[2021-09-15] MEDS ORDERED: BUPIVACAINE 0.5 % 5 MG/1 ML PF 10ML VIAL ONE (06:17)
[2021-09-15] MEDS ORDERED: ORTHO JOINT ANESTHETIC ONE (06:31)
[2021-09-15] MEDS ORDERED: MIDAZOLAM HCL 1 MG/ML 2ML VIAL ONE ×2 (06:40→07:15)
[2021-09-15] MEDS ORDERED: fentaNYL citrate 100 MCG/2 ML VIAL ONE (06:41)
--- NOTE | 2021-09-15 06:45 | History & Physical Bridge Note ---
Date of Service September 15, 2021 History & Physical Bridge Note I have examined the patient, reviewed the History & Physical and in the interval since the performance of the History & Physical I have noted the following changes of clinical significance: no changes noted
[2021-09-15] MEDS ORDERED: ATROPINE SULFATE 0.1 MG/ML 10ML SYR IV PRN (07:12)
[2021-09-15] MEDS ORDERED: ePHEDrine sulfate 50 MG/ML AMP IV PRN (07:12)
[2021-09-15] MEDS ORDERED: ONDANSETRON INJ 2 MG/ML 2 ML VIAL IV PRN ×2 (07:12→11:12)
[2021-09-15] MEDS ORDERED: HYDROmorphone INJ 1 MG/ML SYRINGE IV PRN (07:12)
[2021-09-15] MEDS ORDERED: PROPOFOL IV EMULSION 10 MG/ML 20 ML VIAL IV ONE ×6 (07:15→08:55)
[2021-09-15] MEDS ORDERED: ONDANSETRON INJ 2 MG/ML 2 ML VIAL ONE (07:18)
[2021-09-15] MEDS ORDERED: LIDOCAINE 2% 2 ML VIAL/AMP(20MG/ML) INFIL ONE (07:18)
[2021-09-15] MEDS ORDERED: PHENYLEPHRINE HCL 10 MG/ML VIAL ONE (08:33)
[2021-09-15] MEDS ORDERED: KETOROLAC 30 MG/ML VIAL ONE (08:33)
--- NOTE | 2021-09-15 09:44 | Operative Report ---
PG Post Operative Report Pre & Post Diagnosis Operation Date: 09/15/21 07:00 Pre-Op Diagnosis: Degenerative Joint Disease Bilateral Knee Post-Op Diagnosis: Degenerative Joint Disease Bilateral Knee I identified the patient and participated in the time-out.: Yes Procedure Operation Date: 09/15/21 07:00 Actual Procedures p Bilateral Total Knee Arthroplasty, Cemented(Bilateral) - Hima Wen DO Surgeon Hima Wen DO Material Expeditor Hima Jaramillo PAC Estimated Blood Loss 100 Findings Consistent with Post-Op Diagnosis Specimens Right and left femoral and tibial bone Complications none Disposition Disposition: Recovery Room Indications Lazaro is a pleasant 55-year-old male who is been dealing with chronic worsening bilateral knee pain. X-rays and clinical examination have been diagnostic for advanced arthritis of both knees. After failing conservative treatment, he elected proceed with bilateral total knee arthroplasties. Description of Procedure Lazaro arrived [facility] for the above procedure. He was seen in the preoperative holding area and both knees were identified and signed. He was given a preoperative antibiotic, TXA, a spinal anesthetic and adductor nerve blocks. He was taken back to the operating room and laid on the table in supine position. He was given basic sedation. Both knees were then prepped and draped in sterile fashion. A timeout was done, and the patient and the operative extremities were properly identified. Right knee implants used: I used a Nikole Persona total knee arthroplasty system with a size 11 standard PS femur, H tibia with a 30 mm stem, 37 oval patella, and a size 10 CPS polyethylene bearing. All components were cemented in place with Biomet cement. A midline incision was made directly over the patella. Dissection was taken down to the extensor mechanism. A subvastus arthrotomy was used. The medial retinaculum was released and the fat pad was mostly excised. The knee was flexed and the ACL, PCL, and meniscus were removed. A drill was sent down the center of the femoral canal followed by an intramedullary ekta. Off that ekta a distal femoral cutting block was placed. 9 mm was resected off the distal femur at 5 of valgus. A posterior referencing AP sizing guide was then placed on the distal femur. The femur measured to be a size 11 standard. 2 drill holes were placed in 3 of external rotation. A 4-in-1 cutting block was then impacted into place. Anterior, posterior, and chamfer cuts were then made. The proximal tibia was then exposed. An external tibial alignment guide was placed. A tibial cut guide was then anchored in place and the proximal tibia was then resected. The posterior aspect of the knee was then opened up and any additional meniscus fragments and osteophytes were removed. The tibia measured to be a size H. The tibial plate was then placed in the appropriate rotation and the tibia was drilled and punched. Trial components were then placed. I used a size 10 CPS polyethylene insert. The knee was brought through a full range of motion and felt to be stable. The peg holes for the femur were then drilled. The patella was then everted and 9 mm was resected off the posterior aspect of the patella. The patella measured to be a size 37 oval. 3 peg holes were then drilled. A trial patella was placed. The knee was once again brought through a full range of motion and felt to be stable. Trial components were then removed. The surrounding soft tissues were injected with 50 cc of an orthopedic pain control cocktail. All components were then cemented into place with Biomet cement. The final polyethylene insert was then snapped into place. Once cement was dry the tourniquet was deflated. Hemostasis was obtained. A dilute betadyne lavage was then done for 3 minutes. The joint was then irrigated with normal saline solution. The subvastus arthrotomy was then closed with #1 Vicryl suture. The skin was closed with 2-0 Vicryl, 3-0V lock suture, and dax. A Silverlon and a soft compressive dressing were placed. Left knee implants used: I used a Nikole Persona total knee arthroplasty system with a size 11 standard PS femur, H tibia with a 30 mm stem, 37 oval patella, and a size 10 CPS polyethylene bearing. All components were cemented in place with Biomet cement. A midline incision was made directly over the patella. Dissection was taken down to the extensor mechanism. A subvastus arthrotomy was used. The medial retinaculum was released and the fat pad was mostly excised. The knee was flexed and the ACL, PCL, and meniscus were removed. A drill was sent down the center of the femoral canal followed by an intramedullary ekta. Off that ekta a distal femoral cutting block was placed. 9 mm was resected off the distal femur at 5 of valgus. A posterior referencing AP sizing guide was then placed on the distal femur. The femur measured to be a size 11 standard. 2 drill holes were placed in 3 of external rotation. A 4-in-1 cutting block was then impacted into place. Anterior, posterior, and chamfer cuts were then made. The proximal tibia was then exposed. An external tibial alignment guide was placed. A tibial cut guide was then anchored in place and the proximal tibia was then resected. The posterior aspect of the knee was then opened up and any additional meniscus fragments and osteophytes were removed. The tibia measured to be a size H. The tibial plate was then placed in the appropriate rotation and the tibia was drilled and punched. Trial components were then placed. I used a size 10 CPS polyethylene insert. The knee was brought through a full range of motion and felt to be stable. The peg holes for the femur were then drilled. The patella was then everted and 9 mm was resected off the posterior aspect of the patella. The patella measured to be a size 37 oval. 3 peg holes were then drilled. A trial patella was placed. The knee was once again brought through a full range of motion and felt to be stable. Trial components were then removed. The surrounding soft tissues were injected with 50 cc of an orthopedic pain control cocktail. All components were then cemented into place with Biomet cement. The final polyethylene insert was then snapped into place. Once cement was dry the tourniquet was deflated. Hemostasis was obtained. A dilute betadyne lavage was then done for 3 minutes. The joint was then irrigated with normal saline solution. The subvastus arthrotomy was then closed with #1 Vicryl suture. The skin was closed with 2-0 Vicryl, 3-0V lock suture, and dax. A Silverlon and a soft compressive dressing were placed. He was then transferred to a hospital bed and taken to the postanesthesia care unit in stable condition. He tolerated the procedure well. Hima Jaramillo PA-C, was present for the entire procedure. He was critical for patient positioning, prepping, draping, retraction exposure, wound closure and application of sterile dressing. I attest to the content of the Intraoperative Record and any orders documented therein. Any exceptions are noted below.
--- NOTE | 2021-09-15 10:33 | XRay Report ---
RIGHT KNEE 2 VIEWS History: Right total knee arthroplasty. Degenerative arthritis. Postop. FINDINGS: The patient is status post a right total knee arthroplasty. The hardware is intact. No frac ture or dislocation. Skin dax are in place. IMPRESSION: Right total knee arthroplasty. No evidence for hardware complication. ACT 112: Negative or not required by law. Electronically signed by: Ephraim Thorne M.D. 09/15/2021 10:31 AM
[2021-09-15] MEDS ORDERED: MAGNESIUM HYDROXIDE SUSP 30 ML UDC PO PRN (11:12)
[2021-09-15] MEDS ORDERED: HYDROmorphone INJ 0.5 MG/0.5 ML SYR IV PRN (11:12)
[2021-09-15] MEDS ORDERED: NALOXONE HCL 0.4 MG/1 ML VIAL/CARP IV PRN (11:12)
[2021-09-15] MEDS ORDERED: bisacodyL 10 MG SUPP PR PRN (11:12)
[2021-09-15] MEDS ORDERED: METOCLOPRAMIDE HCL INJ 5 MG/ML 2 ML VIAL IV PRN (11:12)
--- NOTE | 2021-09-15 11:50 | XRay Report ---
XR knee LT 1 or 2V routine CLINICAL HISTORY: Surgical Post Op. Status post total knee replacement COMPARISON STUDY: No previous studies for comparison. TECHNIQUE: 2 left knee views FINDINGS: The patient is status post total knee replacement. The prosthetic components are in anatomi c alignment with no acute abnormality seen. Air is present within the soft tissues from the procedure . Skin dax are seen anteriorly. IMPRESSION: 1. Status post total knee replacement. ACT 112: Negative or not required by law. Electronically signed by: Gopi Ellis M.D. 09/15/2021 11:48 AM
--- NOTE | 2021-09-15 11:52 | Anesthesiology Progress Note ---
Date of Service September 15, 2021 Anesthesia Post Procedure Vital Signs Vital Signs: Temp Pulse Pulse Resp BP Pulse Ox 09/15/21 11:31 36.5 C 70 16 99/61 L 97 09/15/21 11:00 36.4 C L 68 16 97/68 L 98 09/15/21 10:45 67 17 100/58 L 94 09/15/21 10:40 36.3 C L 65 13 91/53 L 94 09/15/21 10:30 64 18 95/55 L 100 09/15/21 10:20 69 18 100/62 99 09/15/21 10:10 69 26 H 97/55 L 97 09/15/21 10:00 71 22 91/55 L 97 09/15/21 09:53 36.5 C 72 17 90/53 L 97 09/15/21 05:15 37.1 C 69 18 139/95 96 Transfer of Care Handoff Completed per policy Notes Mental Status: alert / awake / arousable Patient Amnestic to Procedure: Yes Nausea / Vomiting: adequately controlled Pain: adequately controlled Airway Patency, RR, SpO2: stable & adequate BP & HR: stable & adequate Hydration State: stable & adequate Neuraxial Anesthesia: was administered and sensory block is resolving Anesthetic Complications: no major complications apparent
[2021-09-15] MEDS: SODIUM CHLORIDE 0.9% 1000ML 1,000 ML IV SCH ×2 (12:02→20:51)
[2021-09-15] MEDS: KETOROLAC 30 MG/ML VIAL IV SCH ×3 (12:59→22:54)
[2021-09-15] MEDS: ACETAMINOPHEN 500 MG TAB PO SCH ×2 (13:00→20:47)
[2021-09-15] MEDS: ceFAZolin 2000MG 2,000 MG/15 ML SYR IV SCH ×2 (15:33→22:54)
[2021-09-15] MEDS: DOCUSATE SODIUM 100 MG CAP PO SCH (20:46)
[2021-09-15] MEDS: ASPIRIN 81 MG ECTAB PO SCH (20:47)
[2021-09-15] MEDS ORDERED: SENNA 8.6 MG TAB PO SCH (21:00)
[2021-09-16] MEDS: oxyCODONE HCL IR 5 MG TAB (IMMEDIATE RELEASE) PO PRN ×3 (01:22→14:46)
[2021-09-16] MEDS: ACETAMINOPHEN 500 MG TAB PO SCH ×2 (05:37→13:07)
[2021-09-16] MEDS: KETOROLAC 30 MG/ML VIAL IV SCH ×2 (05:37→11:22)
--- NOTE | 2021-09-16 06:42 | Orthopedic Progress Note ---
Date of Service September 16, 2021 Assessment & Plan (1) Status post bilateral knee replacements: Overall is doing very well. Is not any much pain in his knees. He will be seen by physical therapy today for ambulation and range of motion exercises. The nursing staff can change his dressings when he is done with physical therapy. He is on aspirin for DVT prophylaxis. He can be discharged home later today if he does well with physical therapy. He will follow-up with orthopedics in 2 weeks. Michelle Willis was seen and examined at bedside this morning. Overall is doing very well. Is not having much pain in his knees. He has been up and ambulating to the bathroom. He has no complaints. . Review of Systems All systems reviewed & are unremarkable except as noted in HPI & below. Physical Exam On physical examination of both knees, his legs are out in full extension. He has active dorsiflexion plantarflexion of both ankles. The dressings are clean and dry. Sensations intact throughout. . Results & Data Results & Data Laboratory Results . Diagnostic Findings Postoperative x-rays of both knees show the prosthesis to be in anatomic alignment without any evidence of fracture, dislocation, or loosening . PG Care Time/CCT Total # of Minutes Spent Total Time Spent with Patient: Total time spent is greater than 50% in coordination of care (as documented) at patient's floor/unit and/or counseling patient: Coding Level of Care Code 82272 Post Operative Follow-Up Diagnoses Status post bilateral knee replacements Z96.653
[2021-09-16] MEDS ORDERED: dexAMETHasone 4 MG TAB PO SCH (08:00)
[2021-09-16] MEDS: ASPIRIN 81 MG ECTAB PO SCH (08:57)
[2021-09-16] MEDS: DOCUSATE SODIUM 100 MG CAP PO SCH (08:57)
[2021-09-16] MEDS ORDERED: ATENOLOL 50 MG TABLET PO SCH (09:00)
[2021-09-16] MEDS ORDERED: MULTIVITAMIN TAB PO SCH (09:00)
[2021-09-16] MEDS ORDERED: hydroCHLOROthiazide 25 MG TAB PO SCH (09:00)
[2021-09-16] MEDS ORDERED: amLODIPine BESYLATE 5 MG TAB PO SCH (09:00)
[2021-09-16] MEDS ORDERED: ENALAPRIL MALEATE 10 MG TAB PO SCH (09:00)
[2021-09-16 11:55] VITALS: BP 101/63; PULSE 65; TEMP 97.9; O2SAT 95
--- NOTE | 2021-09-16 15:08 | Discharge Summary ---
Date of Service September 16, 2021 Admission HPI (Per Admitting) Lazaro is a pleasant 55-year-old male who is been doing chronic worsening bilateral knee pain. 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 X-rays and clinical examination been diagnostic for advanced osteoarthritis of both knees. After failing conservative treatment, he is elected proceed with bilateral total knee arthroplasties. Admission Exam (Per Admitting) On physical examination of both knees, he has motion from 5 to 115 degrees. Is no instability. He has pain of the distal medial femoral condyle and over the medial joint line. He does have a varus deformity. Principal Diagnosis Same as "Discharge Diagnosis" noted below under Discharge Instructions. Discharge Exam On physical examination of both knees, his legs are out in full extension. He has active dorsiflexion plantarflexion of both ankles. The dressings are clean and dry. Sensations intact throughout. . Discharge Data Procedures Performed Operation Date: 09/15/21 07:00 Actual Procedures p Bilateral Total Knee Arthroplasty, Cemented(Bilateral) - Hima Wen DO Ordered Studies 09/15/21 05:00 US - OR guided needle placemen Routine Hospital Course (1) Status post bilateral knee replacements: On September 15, 2021 Lazaro arrived at [facility] and underwent bilateral knee replacements without complication. He had a spinal anesthetic. Postoperatively he was started on aspirin for DVT prophylaxis and transferred to the general orthopedic floors. His hospital course was uneventful. On postop day #1 his vital signs were stable and his pain was well controlled. He was able to participate well with physical therapy doing ambulation and range of motion exercises. He was then discharged home. He will follow-up with orthopedics in 2 weeks. PG Care Time/CCT Total # of Minutes Spent Total Time Spent with Patient: Total time spent is greater than 50% in coordination of care (as documented) at patient's floor/unit and/or counseling patient: Discharge Plan Discharge Items Patient Disposition: Home - Home Health Services Reason For Visit: Degenerative Joint Disease Knees Discharge Diagnosis: Bilateral knee replacement Activity: Per Instructions section Non-emergency contact: Surgeon Call non-emergency contact if: your wound has increased redness and your wound has increased drainage Follow-up/Referrals: Donna Vee MD [Primary Care Provider] - Diet: Regular Addtl Attending Provider Instructions: Activity and Therapy Recommendations: * If you are using [facility] then therapy will be provided at your home until they feel you have accomplished all of your goals. * If you are using [facility] then Physical Therapy will be provided until they feel you are ready to start Outpatient Physical Therapy. * If you are not using home therapy then Outpatient Physical Therapy should start about 3-5 days from your day of surgery. Therapy will last about 6-10 weeks * It is important not to put a pillow under your knee when you are relaxing or sleeping. It is just as important to make sure you are getting your knee perfectly straight as it is to regain your knee bend. * You were shown a series of exercises in the hospital. Do these exercises three times each day including the exercises you were shown in physical therapy. * Get up and walk several times each day. For the first four weeks, try not to stand or walk for more than one hour at a time. If you do stand or walk for more than one hour, you will not hurt anything, but your leg will likely swell. * As you feel comfortable, you may change from the walker or crutches to a cane and then to independent walking. Medications: * Narcotic You will likely be sent home from the hospital with a prescription f or the narcotic pain medication that worked best throughout your stay. * Aspirin Most patients will be required to take Aspirin 81mg twice a day for 6 weeks after surgery. This is obtained [id number] and a prescription is not necessary. * Other medications may be prescribed for specific circumstances. If you have any questions, please call the office at . * Resume previous home medications unless otherwise instructed TEDs/Elastic Stockings: The white elastic stockings help limit swelling and prevent blood clots from forming in your legs.~ The more you wear them, the more they work. Wear them for six weeks. Dressing Care: The dressing can be changed after physical therapy on postop day #1. Daily dry dressing changes for a few days, especially if the incision is still draining some. If the incision is not draining then you may leave the dax open to air. If there is a little bit of drainage or if the dax are getting stuck on your clothing then cover the incision with a dry dressing. The dax will be removed at your 2 week follow-up appointment. Showering: You may shower 5 days from the day of surgery as long as the incision is no longer draining. You may shower with the dax exposed. Let soapy water run over the dax and pat them dry. Do not scrub or soak the incision. Things To Watch For: * Drainage from the incision site that occurs more than one week after your surgery. * Increased redness at the incision site. * Fever above 102 degrees Fahrenheit. * Unusual chest pain or shortness of breath. * Call [facility] at with any of the above problems Follow-Up Visit: Follow-up with Dr. Wen's PA (Hima Jaramillo) 2-3 weeks after your day of surgery. He will remove your dax and answer any questions. If you have any additional questions or concerns, Dr Wen is usually in the office at the same time and will be available An appointment was probably scheduled when you signed-up for surgery in the office. If you have any questions call Office Instructions: More detailed instructions as well as Frequently Asked Questions were provided in a folder by our office when you signed-up for surgery. Please review these instructions when you get home. If you have any further questions or concerns, please feel free to call the office at [phone] Pending Studies at Discharge: No Stand-Alone Forms: My [facility], Work/School Release Medications and DC Order Prescriptions: New oxycodone-acetaminophen 5-325 mg tablet 1 tab PO Q6H PRN (Reason: pain) Qty: 40 RF: 0 aspirin 81 mg Tablet,Delayed Release (Dr/Ec) 81 mg PO BID 42 Days Qty: 0 RF: 0 Continued (DME) Wheeled Walker Misc See Rx Instructions .ROUTE .MEDSUPPLY Qty: 1 RF: 0 meloxicam 15 mg Tablet 15 mg PO QAM RF: 0 amlodipine 5 mg Tablet 5 mg PO QAM RF: 0 hydrochlorothiazide 25 mg Tablet 12.5 mg PO QAM RF: 0 benazepril 40 mg Tablet 40 mg PO QAM RF: 0 atenolol 50 mg Tablet 50 mg PO QAM RF: 0 omega 3-gtp-biy-fish oil [Fish Oil] 1,000 mg (120 mg-180 mg) Capsule 2 cap PO QAM RF: 0 Discharge Orders: Discharge Order (Routine); Ordered 09/16/21 Ordered By: Hima Gonzalez/Other Patient Handouts: DVT Post Op Prevention Admission Data Admit Date/Time: 09/15/21 09:53 Attending Provider: Hima Wen Admit Provider: Hima Wen Primary Care Provider: Donna Vee Other Interventions: Discharge Summary Assessment (RN) Last Done: 09/16/21 10:52
== END 2021-09-16 15:00 | disposition home health service (06) ==
LOC: 3E 05:13 → ASU 05:13

== ENCOUNTER 2023-11-01 09:21 | Observation (INO) ==
--- NOTE | 2023-10-07 13:05 | PAT Medication Instructions ---
Medication Instructions Date of Service October 07, 2023 Home Medications Medication Instructions Recorded Ace Nunn #1 ea 01/02/20 amlodipine 5 mg tablet 5 mg PO QAM atenolol 50 mg tablet 50 mg PO QAM benazepril 40 mg tablet 40 mg PO QAM hydrochlorothiazide 25 mg tablet 12.5 mg PO QAM meloxicam 15 mg tablet 15 mg PO QAM omega 2-hqk-kds-fish oil 1,000 mg (120 mg-180 mg) capsule (Fish Oil) 2 cap PO QAM duloxetine 60 mg capsule,delayed release 60 mg PO QAM ASK your surgeon for instructions meloxicam 15 mg tablet 15 mg PO QAM STOP taking 2 weeks before surgery (or as soon as possible if surgery is within 2 weeks) omega 5-ytq-ksl-fish oil 1,000 mg (120 mg-180 mg) capsule (Fish Oil) 2 cap PO QAM DO NOT take the morning of surgery benazepril 40 mg tablet 40 mg PO QAM hydrochlorothiazide 25 mg tablet 12.5 mg PO QAM Take morning of surgery With a small sip of water, OTHERWISE NOTHING TO EAT OR DRINK AFTER MIDNIGHT: amlodipine 5 mg tablet 5 mg PO QAM atenolol 50 mg tablet 50 mg PO QAM duloxetine 60 mg capsule,delayed release 60 mg PO QAM Other Notes If you have any questions please call us at [phone] or [phone] or [phone] or [phone]
--- NOTE | 2023-10-15 10:17 | Anesthesiology Consultation ---
Date of Service October 15, 2023 Assessment & Plan (1) Encounter for pre-operative examination: - Check BSG AM DOS (Preop glucose elevated at 139. No noted hx of diabetes/prediabetes. Will recheck level DOS) - Infectious disease screening: Per assessment on 10/15/23: No known infectious disease contacts or current infectious disease symptoms. No noted recent Covid positive test result. - Outpatient joint assessment: Pt currently scheduled for inpatient pathway. If surgeon requests review for outpatient joint pathway, patient is not recommended candidate for outpatient joint program from anesthesia standpoint based upon available information. - New onset A. fib: Noted at PAT visit 10/15/23. Patient asymptomatic with stable vital signs. Recommendation for patient to proceed to ER (patient agreeable). ER charge nurse (Luisana) made aware. Patient transported to ER without issue. Annie with surgeon's office + Candy with PCP made aware. Patient already of beta ron (hx HTN). [facility] ER visit 10/15/23 notes "In light of the asymptomatic and incidental finding he and I discussed patient's medication his options. He did ask for the patient's atenolol to be cut in half. We did discuss options for anticoagulation. Patient is very low risk by his assessment and he felt the patient did good take Eliquis twice daily if he wanted to but felt it was very reasonable as well to hold on this until follow-up. Patient and I had a long discussion several times on reassessments about his issues including the anticoagulation options. Patient after thinking about the risk and benefits would like to hold off on anticoagulation for this weekend and discuss it with cardiology follow-up next week. He was given information to call for a follow- up appointment." - Patient scheduled for preop cardiology preop appointment 10/27/23 at [facility]. Due to new onset a.fib diagnosis and proximity of cardiology preop appointment to DOS, workload message sent to cardio to make them aware. Awaiting preop cardiology evaluation (SERINA, appt 10/26). Chart Review Chart Review: Patient seen in Pre Admission Testing Teaching & Discussion Pre-Anesthesia Teaching/Discussion Notes: Instructed NPO after midnight before surgery,except medications with 15 cc of water. Medication instructions provided according to the PAT guidelines. History Surgery Operation Date: 11/01/23 12:00 Proposed Procedures p Left Total Hip Arthroplasty Anterior - Hima Wen, DO Height/Weight Height: 6 ft Weight: 143.2 kg Allergies Allergy/AdvReac Type Severity Reaction Status Date / Time No Known Allergies Allergy Verified 10/15/23 16:48 Medications Home Medications Medication Instructions Recorded Confirmed Last Taken amlodipine 5 mg tablet 5 mg PO QAM 12/28/19 10/15/23 10/15/23 atenolol 50 mg tablet 50 mg PO QAM 12/28/19 10/15/23 10/15/23 benazepril 40 mg tablet 40 mg PO QAM 12/28/19 10/15/23 10/15/23 hydrochlorothiazide 25 mg tablet 12.5 mg PO QAM 12/28/19 10/15/23 10/15/23 meloxicam 15 mg tablet 15 mg PO QAM 12/28/19 10/15/23 10/15/23 omega 0-utm-ozs-fish oil 1,000 mg 2 cap PO QAM 12/28/19 10/15/23 10/15/23 (120 mg-180 mg) capsule (Fish Oil) Wheeled Walker #1 ea 01/02/20 04/20/22 Unknown duloxetine 60 mg capsule,delayed 60 mg PO QAM 10/05/23 10/15/23 10/15/23 release Past Medical History Medical History Atrial fibrillation New onset a. fib (noted on preop ECG 10/15/23 at PAT visit) Hypertension Morbid obesity Osteoarthritis Sleep apnea CPAP (compliant) Exercise / Class Metabolic Activity II 4-5 Yardwork/Stairs/Walk up hill (one FS: no CP, no SOB) Past Family History Family History Other No family history of adverse response to anesthesia No known health problems Past Surgical History Surgical History History of bilateral knee replacement B/L TKA (08/29/2021): SAB at L3-4 + regional at [facility] Status post right hip replacement Past Anesthesia History No Hx of Anesthesia Complications and No Family Hx of Anesthesia Complications History of PONV No Hx of PONV and No Hx of Motion Sickness Social History Smoking Status: Never smoker Do You Dip or Chew Tobacco: No Hx Alcohol Use: No Hx Substance Use: No substance use type: does not use Review of Systems Patient denies chest pain, shortness of breath, dyspnea on exertion, fever, chills, cough, wheezing, palpitations. Physical Exam Vital Signs BP 113/72 P 80 TEMP SP02 98%RA RESP 18 Physical Full cervical extension range of motion. Full TMJ range of motion. TMD > 3.5 finger breaths Mallampati Score 2 Dentition: intact Lungs: clear throughout to auscultation Cardiac: regular rate, irregular rhythm, distant heart sounds no murmurs noted Spine: normal Carotid arteries: negative bruit Extremities: no LE edema Thick neck Lab Results Anesthesia Preop Results Results Anesthesia Widget: WBC 6.08 K/ul (4.8-10.8) 10/15/23 Hgb 14.8 g/dl (14.0-18.0) 10/15/23 Hct 42.9 % (42.0-52.0) 10/15/23 Plt 225 K/uL (130-400) 10/15/23 Na 137 mmol/L (136-145) 10/15/23 K 4.4 mmol/L (3.5-5.1) 10/15/23 Cl 106 mmol/L (98-107) 10/15/23 CO2 25 mmol/L (21-32) 10/15/23 BUN 27 mg/dl (6-23) H 10/15/23 Creat 1.46 mg/dl (0.6-1.4) H 10/15/23 Glucose Level 139 mg/dl (70-99(Fasting)) H 10/15/23 PT 11.1 Seconds (9.0-12.0) 10/15/23 PTT 28 Seconds (21-31) 10/15/23 INR 1.0 (0.9-1.1) 10/15/23 TSH 0.487 uIu/ml (0.300-4.500) 10/15/23 Blood Type A Positive 10/15/23 Antibody Screen NEGATIVE 10/15/23 Testing Electrocardiogram Date: 10/15/23 A. fib at 60bpm. Chest X-Ray Date: 10/15/23 FINDINGS: Lung volumes are normal. Lungs are clear. There is no pneumothorax or pleural effusion. The cardiomediastinal silhouette is stable. Moderate-sized hiatal hernia is again noted. There is no evidence for pulmonary edema. IMPRESSION: No acute cardiopulmonary findings. No change in appearance of the chest.
--- NOTE | 2023-10-28 12:30 | History & Physical Report ---
Date of Service October 28, 2023 Assessment & Plan (1) Osteoarthritis of left hip: We will proceed with a left anterior total of arthroplasty. Postoperatively he will be started on aspirin for DVT prophylaxis and kept overnight in the hospital for postop medical management. [facility] plans [facility]. History of Present Illness Chief Complaint: Osteoarthritis of the left hip. Primary Care Provider: Donna Vee MD Lazaro is a pleasant 57-year-old male who has been dealing with chronic increasing left hip and groin pain. I have done a right hip replacement on him and bilateral knee replacements. Those have done well. Unfortunately, he is really struggling with his left hip. He saw his primary care provider. X-rays show severe osteoarthritis to the hip. After failing conservative treatment, he has elected proceed with a left anterior total of arthroplasty. Allergies Allergy/AdvReac Type Severity Reaction Status Date / Time No Known Allergies Allergy Verified 10/27/23 10:25 Home Medications Medication Instructions Recorded Confirmed Type amlodipine 5 mg tablet 5 mg PO QAM 12/28/19 10/27/23 History atenolol 50 mg tablet 50 mg PO QAM 12/28/19 10/15/23 History benazepril 40 mg tablet 40 mg PO QAM 12/28/19 10/27/23 History hydrochlorothiazide 25 mg tablet 12.5 mg PO QAM 12/28/19 10/27/23 History meloxicam 15 mg tablet 15 mg PO QAM 12/28/19 10/27/23 History omega 5-kbt-ucu-fish oil 1,000 mg 2 cap PO QAM 12/28/19 10/27/23 History (120 mg-180 mg) capsule (Fish Oil) Wheeled Walker #1 ea 01/02/20 10/27/23 Rx duloxetine 60 mg capsule,delayed 60 mg PO QAM 10/05/23 10/27/23 History release Past Med/Surg History Medical History Atrial fibrillation New onset a. fib (noted on preop ECG 10/15/23 at PAT visit) Morbid obesity Osteoarthritis Sleep apnea CPAP (compliant) Hypertension Surgical History History of bilateral knee replacement B/L TKA (08/29/2021): SAB at L3-4 + regional at [facility] Status post right hip replacement Family History Other No family history of adverse response to anesthesia No known health problems Social History Smoking Status: Never smoker Second Hand Exposure: No; Do You Dip or Chew Tobacco: No; Hx Alcohol Use: No Hx Substance Use: No Preferred Language: Taiwanese Communication Ability: Effective Visual Impairment: No Limitations Sequins Slinger Required: No Beliefs That Will Affect Care: None marital status: Current Living Situation: Spouse Current Living Situation Comment: adult son every other weekend current occupational status: employed 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 Physical Exam On physical examination of the left hip, he has decreased range of motion. He has pain with internal/external rotation. All of his pain is located in the groin.. Constitutional WD/WN, vitals as above Eyes PERRL, conjunctivae normal, anicteric sclerae ENMT external ear and nose normal, oropharynx normal Neck trachea midline, no thyromegaly Respiratory normal respiratory effort Cardiovascular RRR, no murmur, no edema Gastrointestinal (Abdomen) normal bowel sounds, soft, nontender, no hepatosplenomegaly Psychiatric A+Ox3, euthymic affect Results & Data Results & Data Laboratory Results . Diagnostic Findings X-rays of the left hip show advanced osteoarthritis with joint space narrowing, osteophyte formation, and [id number] tubulation. PG Care Time/CCT Total # of Minutes Spent Total Time Spent with Patient: Total time spent is greater than 50% in coordination of care (as documented) at patient's floor/unit and/or counseling patient: Coding Level of Care Code None Diagnoses Osteoarthritis of left hip M16.12
[~2023-11-01 09:21] MED LIST changes: -ACETAMINOPHEN 500 MG TAB PO SCH; -BUPIVACAINE 0.5 % 5 MG/1 ML PF 10ML VIAL ONE; -CEFAZOLIN 3000MG 72.5 ML IV SCH; -DEXAMETHASONE SOD INJ 4 MG/ML VIAL ONE; -FAMOTIDINE 20 MG TAB PO SCH; -GABAPENTIN 600 MG DOSE PO SCH; -GLYCOPYRROLATE 0.2 MG/ML VIAL ONE; -KETAMINE HCL INJ 50 MG/ML 10 ML VIAL ONE; -LIDOCAINE HCL 2% 2 ML VIAL/AMP(20MG/ML) INFIL ONE; -LR 60ML/HR IV SCH; -MIDAZOLAM HCL 1 MG/ML 2ML VIAL ONE; -ONDANSETRON INJ 2 MG/ML 2 ML VIAL ONE; -PROPOFOL IV EMULSION 10 MG/ML 20 ML VIAL IV ONE; +ROPIVACAINE 0.5% 5 MG/ML 30 ML VIAL ONE; -ROPIVACAINE 0.5% HCL/PF 150 MG, BUPIVACAINE 0.5% MPF 30 ML, EPINEPHrine 30MG/30ML (OR U... INSTIL SCH; -TRANEXAMIC ACID 1,000 MG **IV Intra-op IV SCH; -TRANEXAMIC ACID 1,000 MG **IV Pre-op IV SCH; -dexAMETHasone 4 MG TAB PO SCH
[2023-11-01] MEDS: LR 500ML BOLUS, THEN 15ML/HR IV SCH (10:02)
[2023-11-01] MEDS ORDERED: HYDROmorphone INJ 2 MG/ML SYR/VIAL IV PRN (10:35)
[2023-11-01] MEDS ORDERED: ePHEDrine sulfate 50 MG/ML AMP IV PRN (10:35)
[2023-11-01] MEDS ORDERED: ONDANSETRON INJ 2 MG/ML 2 ML VIAL IV PRN ×2 (10:35→14:12)
[2023-11-01] MEDS ORDERED: fentaNYL citrate PF 100 MCG/2 ML VIAL IV PRN (10:35)
[2023-11-01] MEDS ORDERED: ATROPINE SULFATE 0.1 MG/ML 10ML SYR IV PRN (10:35)
[2023-11-01] MEDS: GABAPENTIN 600 MG DOSE PO SCH (10:59)
[2023-11-01] MEDS: FAMOTIDINE 20 MG TAB PO SCH (10:59)
[2023-11-01] MEDS: ACETAMINOPHEN 500 MG TAB PO SCH ×2 (11:00→15:08)
[2023-11-01] MEDS ORDERED: MIDAZOLAM HCL 1 MG/ML 2ML VIAL ONE (11:10)
[2023-11-01] MEDS ORDERED: PROPOFOL IV EMULSION 10 MG/ML 20 ML VIAL IV ONE ×2 (11:10→13:09)
[2023-11-01] MEDS ORDERED: LIDOCAINE 2% 2 ML VIAL/AMP(20MG/ML) INFIL ONE (11:10)
[2023-11-01] MEDS: dexAMETHasone**PF** 10 MG/ML VIAL IV SCH (11:15)
[2023-11-01] MEDS: LR 60ML/HR IV SCH (11:15)
[2023-11-01] MEDS: TRANEXAMIC ACID 1,000 MG **IV Pre-op IV SCH (11:19)
--- NOTE | 2023-11-01 11:25 | History & Physical Bridge Note ---
Date of Service November 01, 2023 History & Physical Bridge Note I have examined the patient, reviewed the History & Physical and in the interval since the performance of the History & Physical I have noted the following changes of clinical significance: no changes noted
[2023-11-01] MEDS: ceFAZolin 3000MG 3,000 MG/72.5 ML BAG IV SCH (11:32)
[2023-11-01] MEDS: ROPIV 0.5% 246mg, Ketorolac 30mg, EPINEPHrine 0.5mg in NSS INFIL SCH (12:23)
--- NOTE | 2023-11-01 12:56 | Operative Report ---
PG Post Operative Report Pre & Post Diagnosis Operation Date: 11/01/23 11:00 Pre-Op Diagnosis: Left Hip Disease Degenerative Joint Disease Post-Op Diagnosis: Left Hip Disease Degenerative Joint Disease I identified the patient and participated in the time-out.: Yes Procedure Operation Date: 11/01/23 11:00 Actual Procedures p Left Anterior Total Hip Arthroplasty(Left) - Hima Wen DO Surgeon Hima Wen DO Mold Forms Builder Hima Jaramillo PA-C Estimated Blood Loss 250 Findings Consistent with Post-Op Diagnosis Specimens Left femoral head Description of Procedure Implants used I used a ZimmerBiomet total hip arthroplasty system with a size 6 high offset Avenir Complete stem, a 56 mm G7 cup with a 25mm screw, an E1 polyethylene liner, a 40 mm ceramic head with a 0 neck. Lazaro arrived at the hospital for the above procedure. He was seen in the preoperative holding area and the operative extremity was identified and signed. He was given a spinal anesthetic, a preoperative antibiotic, and TXA. He was then taken back to the operating room and laid on the table in the supine position. He was given basic sedation. The operative leg was secured to a Puristst leg positioner. The hip was then prepped and draped in sterile fashion. A timeout was done and the patient and the operative extremity was properly identified. An anterior approach was used. Dissection was taken down through the fascia and the tensor muscle belly was retracted laterally and the rectus was retracted medially. The circumflex vessels were identified and ligated. The capsule was then incised and tagged for later repair. The femoral neck was then cut and the femoral head was removed. The acetabulum was exposed. Time was spent doing a complete circumferential labral release. Sequential reaming of the acetabulum up to a size 55 reamer was done. Final reamings were done under fluoroscopy to ensure appropriate version. A Biomet 56 mm G7 cup was then impacted into place. A single 25 mm screw was placed. The E1 polyethylene liner was then snapped into place. Surrounding soft tissues were then injected with 100 cc of an orthopedic pain control cocktail. The proximal femur was then exposed. Sequential broaching up to a size 6 broach was done. Off that broach a size 40 head with a 0 neck was trialed. The hip was reduced and fluoroscopic images showed anatomic alignment of the implants in acceptable length. The broach was removed. The final size 6 high offset Avenir Complete stem was then impacted into place. A ceramic 40 mm head with a 0 neck was then impacted onto the stem and the hip was reduced. Final fluoroscopic images showed anatomic alignment of the hip. The capsule was then closed with #1 Vicryl suture. A dilute betadyne lavage was then done for 3 minutes. The joint was then irrigated with normal saline solution. The fascia was closed with #1 PDS suture. Skin was closed with 2-0 Vicryl, dax, and a Silverlon dressing. He was then transferred to a hospital bed and taken to the post anesthesia care unit in stable condition. He tolerated the procedure well. Hima Jaramillo PA-C, was present for the entire procedure. He was critical for patient positioning, prepping, draping, retraction exposure, wound closure and application of sterile dressing. I attest to the content of the Intraoperative Record and any orders documented therein. Any exceptions are noted below.
[2023-11-01] MEDS: TRANEXAMIC ACID 1,000 MG **IV Intra-op IV SCH (13:00)
[2023-11-01] MEDS ORDERED: PHENYLEPHRINE 100MCG/ML 10ML SYR IV ONE (13:09)
[2023-11-01] MEDS ORDERED: HYDROmorphone INJ 0.5 MG/0.5 ML SYR IV PRN (14:12)
[2023-11-01] MEDS ORDERED: oxyCODONE HCL IR 5 MG TAB (IMMEDIATE RELEASE) PO PRN (14:12)
[2023-11-01] MEDS ORDERED: METOCLOPRAMIDE HCL INJ 5 MG/ML 2 ML VIAL IV PRN (14:12)
[2023-11-01] MEDS ORDERED: MAGNESIUM HYDROXIDE SUSP 30 ML UDC PO PRN (14:12)
[2023-11-01] MEDS ORDERED: NALOXONE HCL 0.4 MG/1 ML VIAL/CARP IV PRN (14:12)
[2023-11-01] MEDS ORDERED: bisacodyL 10 MG SUPP PR PRN (14:12)
[2023-11-01] MEDS: MISSING Provider Signature on ORDER(s) SCH (14:14)
[2023-11-01] MEDS: MISSING Provider Signature on ORDER(s) STA (14:14)
[2023-11-01] MEDS: SODIUM CHLORIDE 0.9% 1,000 ML IV SCH (14:14)
--- NOTE | 2023-11-01 14:15 | XRay Report ---
AP PELVIS, CROSSTABLE LATERAL LEFT HIP History: Left total hip arthroplasty. Degenerative arthritis. Postop. FINDINGS: The patient is status post a left total hip arthroplasty. The hardware is intact. No fractu re or dislocation. Skin dax are in place. Prior right total hip arthroplasty. IMPRESSION: Left total hip arthroplasty. No evidence for hardware complication. ACT 112: Negative or not required by law. Electronically signed by: Ephraim Thorne M.D. 11/01/2023 2:13 PM
--- NOTE | 2023-11-01 15:01 | Fluoroscopy Report ---
FL hip LT 1V CLINICAL HISTORY: LEFT ANTERIOR HIP TECHNIQUE: 1 views were obtained with the C-arm in the OR with the above procedure. Total fluoroscopy time was 15.5 seconds. Radiation dose was 3.35 mGy. Comparison: Comparison is made to left hip radiographs 07/20/2023 FINDINGS/IMPRESSION: Intraoperative images were obtained of left anterior total hip arthroplasty. Please correlate with intraoperative fluoroscopy and operative report. ACT 112: Negative or not required by law. Electronically signed by: Chava Serrano M.D. 11/01/2023 3:00 PM
[2023-11-01] MEDS: KETOROLAC 30 MG/ML VIAL IV SCH (15:07)
--- NOTE | 2023-11-01 15:13 | Anesthesiology Progress Note ---
Date of Service November 01, 2023 Anesthesia Post Procedure Vital Signs Vital Signs: Temp Pulse Pulse Resp BP Pulse Ox O2 Del Method 11/01/23 15:06 36.5 C 61 18 100/66 97 Room Air 11/01/23 14:45 36.5 C 57 L 16 109/67 97 Room Air 11/01/23 14:05 36.5 C 61 14 107/67 97 Room Air 11/01/23 13:40 36.5 C 57 L 15 105/70 98 Room Air 11/01/23 13:30 60 19 112/60 100 Oxymask 11/01/23 13:22 36.2 C L 71 18 100/64 95 Oxymask 11/01/23 09:48 Room Air, CPAP 11/01/23 09:48 36.6 C 76 18 134/83 97 Room Air, CPAP O2 Flow Rate 11/01/23 15:06 11/01/23 14:45 11/01/23 14:05 11/01/23 13:40 11/01/23 13:30 12 11/01/23 13:22 12 11/01/23 09:48 11/01/23 09:48 Pain Intensity Left Hip: Pain Intensity: 5 Transfer of Care Handoff Completed per policy Notes Mental Status: alert / awake / arousable and participated in evaluation Patient Amnestic to Procedure: Yes Nausea / Vomiting: adequately controlled Pain: adequately controlled Airway Patency, RR, SpO2: stable & adequate BP & HR: stable & adequate Hydration State: stable & adequate Neuraxial Anesthesia: was administered and sensory block is resolving Anesthetic Complications: no major complications apparent and Pt Satisfied with anesthetic care
[2023-11-01] MEDS: ceFAZolin 2000MG 2,000 MG/15 ML SYR IV SCH (20:56)
[2023-11-01] MEDS: ASPIRIN 81 MG ECTAB PO SCH (20:56)
[2023-11-01] MEDS: SENNA 8.6 MG TAB PO SCH (20:57)
[2023-11-01] MEDS: DOCUSATE SODIUM 100 MG CAP PO SCH (20:57)
--- NOTE | 2023-11-02 06:40 | Orthopedic Progress Note ---
Date of Service November 02, 2023 Assessment & Plan (1) Status post left hip replacement: Overall he is doing fairly well. Is not having much pain in the left hip. He will be seen by physical therapy today for ambulation and range of motion exercises. The dressing can be changed after physical therapy today. He is orthopedically stable for discharge to home. He is on aspirin for DVT prophylaxis. He will follow-up with orthopedics in 2 weeks. Michelle Willis was seen and examined at bedside this morning. Overall is doing fairly well. He is not having much pain in the left hip. He has been up and ambulating. He has no complaints.. Review of Systems All systems reviewed & are unremarkable except as noted in HPI & below. Physical Exam On physical examination of the left hip, the dressing has been reinforced. His legs out full extension. He is active dorsiflexion plantarflexion of his left ankle.. Results & Data Results & Data Laboratory Results . Diagnostic Findings Postoperative x-rays of the left hip show the prosthesis to be in anatomic alignment without any evidence of fracture complication, or loosening.. PG Care Time/CCT Total # of Minutes Spent Total Time Spent with Patient: Total time spent is greater than 50% in coordination of care (as documented) at patient's floor/unit and/or counseling patient: Coding Level of Care Code 96535 Post Operative Follow-Up Diagnoses Status post left hip replacement Z96.642
--- NOTE | 2023-11-02 06:41 | Discharge Summary ---
Date of Service November 02, 2023 Admission HPI (Per Admitting) Lazaro is a pleasant 57-year-old male who has been dealing with chronic increasing left hip and groin pain. I have done a right hip replacement on him and bilateral knee replacements. Those have done well. Unfortunately, he is really struggling with his left hip. He saw his primary care provider. X-rays show severe osteoarthritis to the hip. After failing conservative treatment, he has elected proceed with a left anterior total of arthroplasty. Admission Exam (Per Admitting) On physical examination of the left hip, he has decreased range of motion. He has pain with internal/external rotation. All of his pain is located in the groin.. Principal Diagnosis Same as "Discharge Diagnosis" noted below under Discharge Instructions. Discharge Exam On physical examination of the left hip, the dressing has been reinforced. His legs out full extension. He is active dorsiflexion plantarflexion of his left ankle.. Discharge Data Procedures Performed Operation Date: 11/01/23 11:00 Actual Procedures p Left Anterior Total Hip Arthroplasty(Left) - Hima Wen DO Ordered Studies 11/01/23 11:00 FL hip LT 1V Routine Hospital Course (1) Status post left hip replacement: On November 01, 2023 Lazaro arrived at [facility] and underwent a left hip replacement without complication. He had a spinal anesthetic. Postoperatively he was started on aspirin for DVT prophylaxis and transferred to the general orthopedic floors. His hospital course was uneventful. On postop day #1, his vital signs were stable and his pain was well-controlled. He was able to participate well with physical therapy doing ambulation and range of motion exercises. He was then discharged home. He will follow-up with orthopedics in 2 weeks. PG Care Time/CCT Total # of Minutes Spent Total Time Spent with Patient: Total time spent is greater than 50% in coordination of care (as documented) at patient's floor/unit and/or counseling patient: Discharge Plan Discharge Items Patient Disposition: Home - Self-Care Reason For Visit: Left Hip Disease Degenerative Joint Disease Discharge Diagnosis: Left hip replacement Activity: Per Instructions section Non-emergency contact: Surgeon Call non-emergency contact if: your wound has increased redness and your wound has increased drainage Follow-up/Referrals: Donna Vee MD [Primary Care Provider] - Diet: Regular Addtl Attending Provider Instructions: Activity and Therapy Recommendations: * If you are using [facility] then therapy will be provided at your home until they feel you have accomplished all of your goals. * If you are using [facility] then Physical Therapy will be provided until they feel you are ready to start Outpatient Physical Therapy. * If you are not using home therapy then Outpatient Physical Therapy should start about 3-5 days from your day of surgery. Therapy will last about 6-10 weeks * You were shown a series of exercises in the hospital. Do these exercises three times each day including the exercises you were shown in physical therapy. * Get up and walk several times each day.~ For the first four weeks, try not to stand or walk for more than one hour at a time. If you do stand or walk for more than one hour, you will not hurt anything, but your leg will likely swell.~~ * As you feel comfortable, you may change from the walker or crutches to a cane and~then to independent walking. Medications: * Narcotic You will likely be sent home from the hospital with a prescription for the narcotic pain medication that worked best throughout your stay. * Cefadroxil -take the antibiotic twice a day for 10 days to help prevent infection. * Aspirin Most patients will be required to take Aspirin 81mg twice a day for 6 weeks after surgery. This is obtained [id number] and a prescription is not necessary. * Other medications may be prescribed for specific circumstances. If you have any questions, please call the office at . * Resume previous home medications unless otherwise instructed TEDs/Elastic Stockings: The white elastic stockings help limit swelling and prevent blood clots from forming in your legs. The more you wear them, the more they work. Wear them for six weeks. Dressing Care: Leave the Silverlon dressing in place for 7 days. After 7 days you may remove the dressing. If the incision is not draining then you may leave the dax open to air. If there is a little bit of drainage or if the dax are getting stuck on your clothing then cover the incision with a dry dressing. The dax will be removed at your 2 week follow-up appointment. Showering: You may shower with the Silverlon dressing in place. Do not let the shower spray hit the dressing directly. Pat the Silverlon dressing dry. If the dressing becomes wet underneath, then simply remove the dressing. Keep the incision dry until you are 7 days out from the day of surgery. After 7 days you may remove the Silverlon dressing and shower with the dax exposed. Let soapy water run over the dax and pat them dry. Do not scrub or soak the incision. Things To Watch For: * Drainage from the incision site that occurs more than one week after your surgery. * Increased redness at the incision site. * Fever above 102 degrees Fahrenheit. * Unusual chest pain or shortness of breath. * Call [facility] at with any of the above problems Follow-Up Visit: Follow-up with Dr. Wen's PA (Hima Jaramillo) 2-3 weeks after your day of surgery. He will remove your dax and answer any questions. If you have any additional questions or concerns, Dr Wen is usually in the office at the same time and will be available An appointment was probably scheduled when you signed-up for surgery in the office. If you have any questions call Office Instructions: More detailed instructions as well as Frequently Asked Questions were provided in a folder by our office when you signed-up for surgery. Please review these instructions when you get home. If you have any further questions or concerns, please feel free to call the office at [phone] Pending Studies at Discharge: No Stand-Alone Forms: [facility] Medications and DC Order Prescriptions: New oxycodone 5 mg Tablet 5 mg PO Q4H PRN (Reason: pain) Qty: 30 0RF cefadroxil 500 mg capsule 500 mg PO BID 10 Days Qty: 20 0RF aspirin 81 mg Tablet,Delayed Release (Dr/Ec) 81 mg PO BID 42 Days Qty: 0 0RF Continued (DME) Wheelluz elena Walker Misc See Rx Instructions .ROUTE .MEDSUPPLY Qty: 1 0RF Rx Instructions: As directed meloxicam 15 mg Tablet 15 mg PO QAM amlodipine 5 mg Tablet 5 mg PO QAM hydrochlorothiazide 25 mg Tablet 12.5 mg PO QAM benazepril 40 mg Tablet 40 mg PO QAM atenolol 50 mg Tablet 25 mg PO QAM omega [id number]-fish oil [Fish Oil] 1,000 mg (120 mg-180 mg) Capsule 2 cap PO QAM duloxetine 60 mg Capsule,Delayed Release(Dr/Ec) 60 mg PO QAM Discharge Orders: Discharge Order (Routine); Ordered 11/02/23 Ordered By: Hima Wen Admission Data Admit Date/Time: 11/01/23 13:21 Attending Provider: Hima Wen Admit Provider: Hima Wen Primary Care Provider: Donna Vee
[2023-11-02] MEDS: amLODIPine BESYLATE 5 MG TAB PO SCH (07:36)
[2023-11-02] MEDS: ENALAPRIL MALEATE 10 MG TAB PO SCH (07:36)
[2023-11-02] MEDS: MULTIVITAMIN TAB PO SCH (07:36)
[2023-11-02] MEDS: ATENOLOL 25 MG TABLET PO SCH (07:37)
[2023-11-02] MEDS: hydroCHLOROthiazide 25 MG TAB PO SCH (07:37)
[2023-11-02] MEDS: DULoxetine HCL 60 MG CAP PO SCH (07:37)
[2023-11-02] MEDS: dexAMETHasone 4 MG TAB PO SCH (07:37)
== END 2023-11-02 12:09 | disposition home or self-care (01) ==
LOC: ASU 09:21 → 3E 09:21